=== PATIENT | female | born 1970 | race Caucasian/White ===

== ENCOUNTER 2017-03-14 12:30 | Emergency (ER) | payer BC, OTHER ==
--- NOTE | 2017-03-14 13:33 | ERNOTE ---
Medical Problem HPI - Narrative Date of Service: 03/14/17 - General Chief Complaint: General Assessment Time Seen by Provider: 03/14/17 13:24 Source: patient, family Exam Limitations: no limitations - Immun/Allergies/Home Medications Immunizations: IMMUNIZATION HX Immunizations Up to Date Yes History of Influenza Vaccine Yes Allergies/Adverse Reactions: Allergies No Known Allergies Allergy (Unverified 03/14/17 12:43) Home Medications: HOME MEDICATIONS Ascorbic Acid [Vitamin C] 500 mg PO DAILY 03/14/17 [Last Taken Unknown] Black Cohosh 540 mg PO DAILY 03/14/17 [Last Taken Unknown] Folic Acid 0.8 mg PO DAILY 03/14/17 [Last Taken Unknown] Prochlorperazine Maleate [Compazine] 10 mg PO TID PRN #10 tablet 03/14/17 [Last Taken Unknown] Zinc 50 mg PO DAILY 03/14/17 [Last Taken Unknown] - History of Present History Narrative: Patient states that over the past 2 days she has had malaise, N/V, diarrhea, and body aches. States she feels very weak. Denies any specific location of pain but rather generalized feelings of illness. Timing: constant Severity: moderate Modifying Factors - (Improves): Present: rest Modifying Factors - (Worsens): Present: movement Review of Systems - Review of Systems Constitutional: Present: weakness, malaise, decreased activity level Respiratory: Present: no symptoms reported Cardiology: Present: no symptoms reported Gastrointestinal/Abdominal: Present: nausea, vomiting, diarrhea Genitourinary: Present: no symptoms reported, other - Is having her menses normal time. Musculoskeletal: Present: other - Generalized muscles aches. Skin: Present: no symptoms reported Neurological: Present: no symptoms reported Endocrine: Present: no symptoms reported Hematologic/Lymphatic: Present: no symptoms reported - Patient's Past Medical History Patient History - Medical: No pertinent hx Patient History - Cardiac/Respiratory: No pertinent hx Patient History - Cancer: No Hx of Cancer Patient History - Other: None - Social History Living Situations: home Psych History: No pertinent hx Smoking Status: Never smoker Alcohol Use: none Drug Use: none - Immunizations Immunizations Up to Date: Yes History of Influenza Vaccine: Yes Physical Exam - Physical Exam General Appearance: Present: wd/wn, alert, mild distress, moderate distress Head Exam: Present: normal inspection Eye Exam: Normal inspection: bilateral Ears, Nose, Throat: Present: normal pharynx Neck: Present: normal inspection, nontender, supple, full range of motion Respiratory: Present: no respiratory distress, normal breath sounds, no accessory muscle use, chest nontender, lungs clear Cardiovascular/Chest: Present: regular rate, rhythm, no murmur, normal peripheral pulses Gastrointestinal/Abdominal: Present: normal bowel sounds, nontender, nondistended, soft, no organomegaly, other - BS present Extremity Exam: Present: normal inspection, non-tender, normal range of motion, no edema Neurological Exam: Present: alert, oriented, normal mood/affect, no motor/ sensory deficits Skin Exam: Present: normal color, warm/dry Lymphatic Exam: Present: no adenopathy ED Progress - Results and Orders Patient's Lab Results:: I have reviewed the patient's lab results. - Vital Signs Patient's Vital Signs:: I have reviewed the patient's vital signs. Vital Signs: Vital Signs 03/14/17 03/14/17 12:38 13:20 Temperature 37.0 C Pulse Rate 68 7 L Respiratory 18 18 Rate Blood Pressure 158/91 146/88 O2 Sat by Pulse 98 98 Oximetry - Progress/Reassessment Chief Complaint: General Assessment Progress:: Pain free at discharge - States she is feeling much better - Transfer of Care Expected Disposition: Discharge Departure - Departure Clinical Impression: Body aches, Nausea alone Disposition: Home Follow Up Needed Condition: Good Additional Instructions: Appears you likely had a viral illness of which we will treat your symptoms as they appear. May continue to eat bland foods until feeling completely better. Drink lots of water. Continue with tylenol/motrin for body aches. Use the nausea medication as needed. Follow up with family provider in 1-2 days. Sooner if needed. If you worsen or do not continue to improve let us know. May also continue the loperamide very carefully trying to prevent constipation. Prescriptions: Prochlorperazine Maleate [Compazine] 10 mg PO TID PRN #10 tablet PRN Reason: Nausea
[2017-03-14] MEDS ORDERED: ONDANSETRON HCL/PF 2 MG/ML VIAL IV ONE (13:34)
[2017-03-14] MEDS ORDERED: NORMAL SALINE 1,000 ML IV ONE (13:34)
[2017-03-14] MEDS ORDERED: KETOROLAC TROMETHAMINE 30 MG/ML VIAL IV ONE (13:35)
[2017-03-14] MEDS ORDERED: ONDANSETRON HCL/PF 2 MG/ML VIAL ONE (13:41)
[2017-03-14] MEDS ORDERED: KETOROLAC TROMETHAMINE 30 MG/ML VIAL ONE (13:41)
[2017-03-14 13:50] LABS: Hematocrit 36.1 % (37.0-47.0); Hemoglobin 12.2 gm/dL (12.5-16.0); Mean Cell Volume 86.4 fl (78-100); Mean Corpuscular Hemoglobin 29.2 pg (27-31); Mean Corpuscular Hgb Conc 33.8 g/dl (32-36); Mean Platelet Volume 10.2 fl (6.0-9.5); Neutrophil # 3.5 K/mm3 (1.3-6.0); Neutrophil % 63.8 % (42-75.0); Platelet Count 192 K/mm3 (150-450); Red Blood Count 4.18 M/mm3 (4.2-5.4); Red Cell Distribution Width 13.5 % (11.5-14.0); White Blood Count 5.5 K/mm3 (4.0-10.5)
[2017-03-14 13:59] LABS: Anion Gap 13.6 mmol/L (6.8-13.8); BUN/Creatinine Ratio 21.1 (9.0-21.6); Calcium * 8.3 mg/dL (7.9-10.9); Carbon Dioxide 23.3 mmol/L (24-32.6); Estimated Creat Clear 105.7; Potassium 3.9 mmol/L (3.4-4.6)
[2017-03-14 14:55] VITALS: BP 163/82
[2017-03-14 15:14] LABS: Urine Appearance Clear; Urine Bilirubin Negative (NEGATIVE); Urine Blood 150 /ul (NEGATIVE); Urine Color Yellow; Urine Ketone Negative (NEGATIVE); Urine Specific Gravity 1.025 SP.GR. (1.005-1.010)
[2017-03-14 15:15] LABS: Urine Bacteria None Seen; Urine Nitrite Negative (NEGATIVE); Urine Protein Negative (NEGATIVE); Urine RBC 0-5 /hpf (0-5); Urine Urobilinogen Normal (NORMAL); Urine WBC 0-5 /hpf (0-5)
== END 2017-03-14 15:37 | disposition home or self-care (01) ==
LOC: ER 12:30
DX: R52 Pain, unspecified (principal); R11.0 Nausea
CPT/HCPCS: 36415; 80048; 81001; 85025; 87086; 96374; 96375; 99284; J2405